=== PATIENT | male | born 1970 | race Caucasian/White ===

== ENCOUNTER 2022-06-06 08:00 | Outpatient (RCR) | payer OTHER, SELFPAY ==
--- NOTE | 2022-06-06 09:05 | BH.SGPN.GN ---
Behaviors/Verbalizations/Mental Status: [] Eye contact good. Motor activity appropriate. Speech within normal limits. Affect congruent- tearful, mood anxious and depressed. Thoughts linear, logical, no signs of hallucinations or delusions. Reviewed client?s symptom tracker, no risk for suicidal ideation, plan, or intent as of 06/06/2022. Client Response/Progress/Benefit: [] Client's first day in IOP tx. He responded well to session, attentive and listening to fellow participants as they processed with the group. Client shared some with group, but became tearful and had a difficult time continuing sharing. 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 Discussed that recently he has been opening up to others about his mental health. Nodding throughout as others shared and appeared to benefit from the supportive structure and encouragement of the group as they shared what they have gotten out of the program. Recommended continued IOP tx to improve emotional regulation skills, increase healthy coping, and prevent decompensation. Narrative Note: []
--- NOTE | 2022-06-07 09:05 | BH.SGPN.GN ---
Behaviors/Verbalizations/Mental Status: []Pt alert and oriented, neatly dressed and groomed. Eye contact good. Motor activity appropriate. Speech within normal limits. Affect congruent, mood anxious. Thoughts linear, logical, no signs of hallucinations or delusions. Reviewed pt?s symptom tracker, no risk for suicidal ideation, plan, or intent as of 06/07/22 Client Response/Progress/Benefit: []Pt responded well to session, quiet, but attentive. Pt's second day of IOP tx and pt reports feeling guarded this morning. Pt shared he has been struggling with PTSD symptoms and he constantly feels on edge and on guard. Pt stated his win today is that he did some work last night with his family. Pt also returned to IOP tx which is positive. Pt will continue IOP tx to prevent decompensation of PTSD symptoms, increase emotional regulation skills, and improve daily functioning. Narrative Note: []
--- NOTE | 2022-06-07 10:12 | BH.SGPN.GN ---
Behaviors/Verbalizations/Mental Status: []Client alert and oriented, casually dressed and groomed. Eye contact good. Motor activity appropriate. Speech within normal limits. Affect congruent, mood anxious and dysthymic. Thoughts linear, logical, no signs of hallucinations or delusions. Client Response/Progress/Benefit: []Client receptive of session, actively engaged throughout AEB taking notes and provided input and examples to discussion. Appeared to connect with group topic of cognitive distortions and the impact of thought patterns on mental health, coping behaviors, and relationships. Reflected that he personally tends to struggle with distortions of predicting the future and overgeneralization. 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 Client appeared to benefit from gaining insight on distorted thinking patterns and how this impacts overall mental health. Progress noted in client report of improved insight and ability to combat distortions with alternative positive thoughts. Will continue IOP tx to reduce anxiety and depression, continue to promote mood stability, and increase overall functioning. Narrative Note: []
--- NOTE | 2022-06-07 11:15 | BH.SGPN.GN ---
Behaviors/Verbalizations/Mental Status: []Eye contact is fair to good. Motor activity is appropriate. Appearance is casual. Speech is WNL. Mood is euthymic. Affect is congruent. Thoughts are linear and logical. No evidence of psychosis. Client Response/Progress/Benefit: []Pt engaged participant AEB providing input during small group discussion and engaging in activity. Activity involved working with peers to answer questions related to psychoeducation on cognitive distortions and practicing reframing distorted thoughts. Pt collaborated with the group to determine the answers. Identified cognitive distortion struggles with the most as shoulds/musts and disqualifying the positive distortions. Benefited from rehearsing ways to challenge/reframe cognitive distortions and by gaining increased insight into examples/definitions of 10 most common cognitive distortions. Will continue in IOP to increase healthy coping skills, improve daily functioning, and prevent decompensation.
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
--- NOTE | 2022-06-08 10:10 | BH.SGPN.GN ---
Behaviors/Verbalizations/Mental Status: []Pt alert and oriented, neatly dressed and groomed. Eye contact good. Motor activity appropriate. Speech within normal limits. Affect constricted, mood anxious. Thoughts linear, logical, no signs of hallucinations or delusions. Client Response/Progress/Benefit: []Pt was an active participant in group discussion and activity. Attentive during psychoeducation. Along with peers was able to identify barriers to taking action. Identified several symptoms and stressors that she feels are holding him back from progress such as fear of letting people down, daily panic attacks, and expectations. 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 Benefited from increased self-awareness of obstacles. Will continue IOP tx to prevent decompensation, improve daily functioning, and gain healthy coping skills. Narrative Note: []
--- NOTE | 2022-06-08 11:10 | BH.SGPN.GN ---
Behaviors/Verbalizations/Mental Status: []Client alert and oriented, casually dressed and groomed. Eye contact good. Motor activity appropriate. Speech within normal limits. Affect congruent, mood anxious and euthymic. Thoughts linear, logical, no signs of hallucinations or delusions. Client Response/Progress/Benefit: []Client responded well to session, taking notes and participating in worksheet discussion. Client connected with the zones of action/change and that making sustainable change comes from stepping out of one?s comfort zone into the learning zone. Client set a goal to gain control over feeling trapped. Client reported plans to challenge himself to get out of the house with either family or his dog once daily. Client identified using trusted supports, therapy, and his amanda as supports needed to help accomplish this goal. Appeared to benefit from identifying a small goal to benefit mental health. Will continue IOP tx to increase healthy coping, promote mood stability, and prevent decompensation. Narrative Note: []
[2022-06-08 11:52] VITALS: BP 125/85; PULSE 61
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
--- NOTE | 2022-06-08 15:15 | BH.MTP_ITS ---
Master Treatment Plan - Patient Information Program Physician:: Devi Ortega Primary Therapist:: Hemal Robles - Psychiatric Diagnoses Psychiatric Diagnoses:: 1. Major depressive disorder, recurrent, severe without psychosis. 2. PTSD. 3. Panic disorder Diagnosis Code(s):: f33.2 - Estimated LOS Estimated LOS (in weeks):: 6 Problem/Goal #1 - Problem/Goal #1 Stated Goal:: Client will reduce depressive symptoms, worthlessness, lack of concentration, and negative automatic thoughts AEB self-report and decreased scores on the depression and suicidal thought domains of the DSM5 scales. Description of Barriers: limited coping skills, isolative behaviors, toxic work environment, limited benefit from previous counseling and medications, stigma Functional Impact: currently on GADIEL from work due to mental health struggles, isolative behaviors, avoidance, decreased interaction with family, decreased social activities. Goal Relevant Strengths/Supports: Strong urge to help others, work ethic. Family is significant support for him - Objectives Objective #1 Stated Objective: Client will learn and utilize 2-3 healthy coping strategies to manage depressive symptoms as shown by reduced DSM-5 cross-cutting symptom measure score. Interventions: Through individual and group counseling will assist client in recognizing triggers for increased self-deprecating and depressive thought patterns. Therapist will help client explore connection between thoughts, feelings, and actions and help client reframe depressive thought patterns. Discharge Criteria: Able to identify and consistently utilize 2-3 coping strategies to manage depressive symptoms, negative thoughts, feelings of failure, etc. Target Date: 07/22/22 Review Date: 06/29/22 Problem/Goal #2 - Problem/Goal #2 Stated Goal:: Stabilize anxiety level while increasing ability to function on a daily basis AEB self-report and decrease in anxiety domain on DSM5 scales. Description of Barriers: limited coping skills, isolative behaviors, toxic work environment, limited benefit from previous counseling and medications, stigma Functional Impact: currently on GADIEL from work due to anxiety, isolative behaviors, avoidance, decreased interaction with family, decreased social activities. Goal Relevant Strengths/Supports: Strong urge to help others, work ethic. Family is significant support for him - Objectives Objective #1 Stated Objective: Client will identify 2-3 cognitive distortions that lead to rumination and learn 2-3 ways to manage these thoughts to better manage anxiety as shown by reduced DSM-5 scores for anxiety. Interventions: Through individual and group counseling will provide education on the most common cognitive distortions and teach client the connection between thoughts, emotions, and feelings. Therapist will assist client in identifying, challenging, and replacing dysfunctional thoughts with positive, more realistic thoughts. Discharge Criteria: Able to identify 2-3 commonly used cognitive distortions and 2-3 skills to reframe/ challenge or alter automatic thoughts associated with cognitive distortions. Target Date: 07/22/22 Review Date: 06/29/22 Objective #2 Stated Objective: Implement calming and coping strategies to reduce overall anxiety and to cope with the experience of panic. Interventions: Through individual and group counseling will provided education on panic attacks as well as calming skills to manage anxiety in the moment. Discharge Criteria: Pt will be able to identify 5 calming skills for use on anxi ety/panic in the moment to reduce distress. Target Date: 07/22/22 Review Date: 06/29/22
--- NOTE | 2022-06-08 15:15 | BH.MDN ---
Multi-Disciplinary Note - Note 60-min Individual Time Started:: 12:10 Date: 06/08/22 Purpose of session/treatment goals addressed:: Met with patient to review progress and current symptoms since starting IOP on 06/06/22. Used the session to begin to develop treatment plan and complete psychosocial assessment. Eye Contact:: Intense Motor Activity:: Restless Appearance:: Neat Speech:: Appropriate Mood:: Anxious Affect:: Congruent Thoughts:: Linear, Logical, No evidence of hallucinations/delusions noted Staff Interventions:: thought challenging, CBT techniques, mindfulness skills, rapport building, treatment planning Client Response:: Pt identified primary goal of IOP is to reduce panic attacks. He estimates that he has 10 panic attacks daily. Symptoms of panic attacks are SOB, chest tightness, numbness, disorientation, feeling trapped, and dizziness. Has presented to the ER with these symptoms recently and according to pt no indication of any heart issues or medical cause. He reports that these panic attacks can last minutes or hours. They appear to be primarily triggered by his negative automatic what if thoughts involving his job, finances, his mental health, housing issues, his future, and his overall functioning. Ruminations occur often (when he wakes up , is driving, in the shower, etc.) and he has limited skills to challenge, reframe, or even accept anxious thoughts. I'm incapacitated. Anxiety and panic attacks have been slowly worsening for the past two years however have been present for several years. Another goal that he has is related to making a decision regarding his current job. He does not wish to return and finds the environment toxic and being significant contributor to his worsening mental health. I want to leave but I feel trapped b/c its all I've ever done. Final goals are to learn calming skills for his anxiety and increase education on trauma. Pt is often hypervigilant due in large part to his training and current job. 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 Risks/Concerns:: no risks or concerns noted. Progress Toward Goals/Plan:: Consistent and engaged in IOP. Pt was receptive to the session. Introduced him to 5 senses mindfulness activity which he found was helpful to bring him into the present. Provided education on connection between thoughts, emotions, and behaviors. Provided education on cognitive distortions. He does present with significant worry ruminations about a myriad of issues with limited coping skills and insight on strategies to reframe or challenge thoughts. He was given task to identify his top 3 cognitive distortion and then begin a thought record. He is linked with an outpatient psychologist whom he has seen a total of 3 sessions and according to patient the mainly talked about breathing exercises and whether or not he should seek disability. Will continue in IOP to prevent decompensation, improve functioning, and increase healthy coping. Time Stopped:: 13:00
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
--- NOTE | 2022-06-13 09:00 | BH.SGPN.GN ---
Behaviors/Verbalizations/Mental Status: []Eye contact is good. Motor activity is appropriate. Appearance is casual. Speech is Appropriate. Mood is anxious and off . Affect is constricted. Thoughts are linear and logical. No evidence of psychosis. Reviewed daily check in sheet and denies any active SI. Client Response/Progress/Benefit: []pt responded well to session, attentive and engaged. Pt reports feeling dizzy and kind of off this morning as pt is worried about what choice he should make with his career. 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 Pt shared belief these worries were exacerbated by pt and his spending time with a ad copy writer friend over the weekend. Pt stated he was able to talk to this person and vent, but pt still feels anxious. Pt receptive to emotional support from peers. Pt reflected on his use of opposite action and reaching out to supports as mental health wins. Pt will continue IOP tx to prevent decompensation, improve ability to manage anxiety and panic, and improve daily functioning. Narrative Note: []
--- NOTE | 2022-06-13 10:10 | BH.SGPN.GN ---
Behaviors/Verbalizations/Mental Status: []Pt alert and oriented, casually dressed and groomed. Eye contact good. Motor activity appropriate. Speech within normal limits. Affect congruent, mood anxious and euthymic. Thoughts linear, logical, no signs of hallucinations or delusions. Client Response/Progress/Benefit: []Pt receptive of group, participated in discussion and taking notes throughout. Group worked together to identify benefits of healthy relationships which included improves mental health, improved emotion regulation, increased sense of security, and a different perspective. Group identified factors that lead to unhealthy relationships which included trauma, lack of communication, unmanaged emotions, and lack of trust. Pt shared connecting with a desire to ?people please? as personal challenges to healthy relationships. Did well to participate, provide input and ideas, manage frustrations, as well as actively listen to other?s during the activity. Benefited from increased insight and awareness of benefits of healthy relationships and factors that contribute to unhealthy relationships. Pt to continue IOP tx to further improve healthy coping skill repertoire and self-advocacy, promote mood stability, and prevent decompensation. ? Narrative Note: []
--- NOTE | 2022-06-13 11:10 | BH.SGPN.GN ---
Behaviors/Verbalizations/Mental Status: [] Client alert and oriented, casually dressed and groomed. Eye contact good. Motor activity appropriate. Speech within normal limits. Affect constricted, mood dysthymic. Thoughts linear, logical, no signs of hallucinations or delusions. Client Response/Progress/Benefit: [] Client responded well to session, engaged and taking notes. Worked with group to identify characteristics of healthy and unhealthy relationships. Attentive during psychoeducation about characteristics of healthy, unhealthy, and abusive relationships. Client stated within relationships he does well with communication at times. Client reported an area she would like to improve in is communication and active listening. Client stated there are times where he gets easily distracted and can't remember what the other person said to him. Appeared to benefit from identifying area wants to work on to build healthier relationships. Client to continue IOP to increase healthy coping skills, challenge distortions, and prevent decompensation.
--- NOTE | 2022-06-15 10:00 | BH.MDN ---
Multi-Disciplinary Note - Note 45-min Individual Time Started:: 09:05 Date: 06/15/22 Purpose of session/treatment goals addressed:: To address current stressors and help pt utilize decisional-balance strategies. Another goal was to review calming skills with pt. Eye Contact:: Good Motor Activity:: Appropriate Appearance:: Casual Speech:: Appropriate Mood:: Anxious Affect:: Constricted Thoughts:: Linear, Logical, No evidence of hallucinations/delusions noted Staff Interventions:: motivational interviewing, psychoeducation on: - panic attacks, CBT techniques, mindfulness skills, strengths perspective, other - decisional balance exercise Client Response:: Pt responded well to session, open to meeting with therapist while his normal IOP therapist is out of the office. 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 Pt then looked at the pros and cons of choosing a new career path and pt could identify more positives and less problematic cons. 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 Pt shared that even with these cons, the potential benefits are worth it to find a new career. Pt is already applying for jobs, but he wants to get help updating his resume. Pt also has an appointment with the [place] in [place] and he is hopeful this will help pt in his job search also. Risks/Concerns:: Pt denies any suicidal ideations, plan, or intent as of 06/15/22. Progress Toward Goals/Plan:: Consistent and engaged in IOP. Pt was receptive to the session. Introduced him to using a decisional balance exercise to help weigh the pros and cons of his career. Also reviewed calming skills previously discussed last session and gave pt a handout on panic attacks. He does present with significant worry ruminations about a myriad of issues with limited coping skills and insight on strategies to reframe or challenge thoughts. Will continue in IOP to prevent decompensation, improve functioning, and increase healthy coping. Time Stopped:: 09:45
--- NOTE | 2022-06-15 10:10 | BH.SGPN.GN ---
Behaviors/Verbalizations/Mental Status: [] Client alert and oriented, casually dressed and groomed. Eye contact good. Motor activity appropriate. Speech within normal limits. Affect congruent, mood euthymic. Thoughts linear, logical, no signs of hallucinations or delusions. Client Response/Progress/Benefit: [] Client responded well to session AEB taking notes throughout and listening attentively to others. Client was attentive throughout group activity discussing famous individuals and how they overcame failure to be successful. Client helped group identify how fear of failure can impact mental health and relationships. Client discussed that personally for him fear of failure can prevent you from trying different things. Group together identified how fear of failure leads to over-obsessing, not trying, and lack of confidence. Client participated in experiential activity, working with group members to problem solve. Appeared to benefit from increased knowledge of fear of failure. Will continue IOP tx to improve self-confidence, reduce distorted thinking patterns, and improve overall functioning. Narrative Note: []
--- NOTE | 2022-06-15 11:10 | BH.SGPN.GN ---
Behaviors/Verbalizations/Mental Status: [] Client alert and oriented, casually dressed and groomed. Eye contact good. Motor activity appropriate. Speech within normal limits. Affect congruent, mood euthymic. Thoughts linear, logical, no signs of hallucinations or delusions. Client Response/Progress/Benefit: [] Client responded well to session, engaged in the experiential activity and attentive throughout group processing. 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 Client completed fear of failure worksheet and was able to identify thoughts and behaviors that reinforce personal fear of failure including embarrassment, PTSD, and fear of rejection. Client participated in small group discussion regarding strategies to overcome fear of failure. Identified wanting to work on connecting with positive people, setting realistic boundaries, and schedule time for self care. Appeared to benefit from increased knowledge of strategies to combat fear of failure and gaining self-awareness. Client will continue IOP tx to increase self care, prevent decompensation, and increase overall functioning. Narrative Note: []
--- NOTE | 2022-06-20 09:05 | BH.SGPN.GN ---
Behaviors/Verbalizations/Mental Status: [] Eye contact is good. Motor activity is appropriate. Appearance is casual. Speech is Appropriate. Mood is depressed. Affect is flat. Thoughts are linear and logical. No evidence of psychosis. Reviewed daily check in sheet and pt reports 1/5 for suicidal thoughts and 0/5 for intent. Therapist to meet with pt this AM. Client Response/Progress/Benefit: [] Pt participated when prompted. Distracted. Daily symptom tracker notes 55 for anxiety and depression. Emotion for today is high anxiety. Shared a significant trigger that he learned of on Monday which led to mental health decompensation. The triggered involved a disciplinary hearing which is scheduled for this week at work. 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 Pt reports that overall the event was beneficial however he was exposed to very intense discussions on trauma which he admits was a lot. Some talks and presentation appeared to very intense and triggering themselves as according to patient one of his friends left because it was very intense. He reports that he made connections with others and felt the environment was very specific to his struggles which was helpful. Despite the event his anxiety was very high and he reports that his panic attacks has increased. He shared with the group some of his negative thoughts and struggles at work. Benefited from group support and encouragement. Will continue in IOP to prevent decompensation, decrease anxiety, and increase functioning to return to work. Narrative Note: []
--- NOTE | 2022-06-20 10:20 | BH.SGPN.GN ---
Behaviors/Verbalizations/Mental Status: []Pt alert and oriented, casually dressed and groomed. Eye contact fair. Motor activity appropriate. Speech within normal limits. Affect flat, mood depressed. Thoughts linear, logical, no signs of hallucinations or delusions. Client Response/Progress/Benefit: []Pt was more passive participant then usual AEB limited contributions to group. Did appear to listen to others comments. Connected with the topic of pitfalls and listened to group discussion on barriers that prevent from choosing a healthier path to mental wellness. Group worked together to identify examples of personal pitfalls and pt identified theirs as lack of communication, isolation, and lack of awareness.? Pt benefited from group as pt learned to better identify potential barriers to improving mental health symptoms. Pt will continue IOP tx to improve emotion regulation, increase use of healthy coping skills, and prevent decompensation.
--- NOTE | 2022-06-20 11:20 | BH.SGPN.GN ---
Behaviors/Verbalizations/Mental Status: []Pt alert and oriented, neatly dressed and groomed. Eye contact fair. Motor activity appropriate. Speech within normal limits. Affect flat, mood anxious. Thoughts linear, logical, no signs of hallucinations or delusions. Client Response/Progress/Benefit: []Pt receptive of session, engaged throughout AEB actively listening and contributing to discussion, as well as taking notes.? Pt participated in the experiential activity and did well to communicate ideas with peers and manage emotions. Pt and group processed how the emotions and perspective of the group after the break positively impacted pt. Group worked together to identify different coping skills to help manage pitfalls. Pt identified pitfalls they struggle with and shared wanting to work on pitfall of shutting down and sleeping by going for walks. ?Benefited from identifying personal pitfalls and strategies to overcome these pitfalls. Will continue IOP tx to prevent decompensation, improve emotional regulation skills to manage anxiety, and reduce negative thinking patterns. Narrative Note: []
--- NOTE | 2022-06-20 13:58 | BH.MDN ---
Multi-Disciplinary Note - Note 60-min Individual Time Started:: 12:15 Date: 06/20/22 Purpose of session/treatment goals addressed:: Reviewed current symptoms and progress in IOP. Pt reports decompensation over the weekend with increased panic attacks back to 10 a day. Eye Contact:: Fair Motor Activity:: Appropriate Appearance:: Neat Speech:: Appropriate Mood:: Anxious Affect:: Congruent Thoughts:: Linear, Logical, No evidence of hallucinations/delusions noted Staff Interventions:: thought challenging, psychoeducation on: - acceptance, goal setting - goals to allow himself 15 minutes per day to give himself permission not to worry. 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 This led to significant anxiety, panic, and depressive thoughts. Over the weekend I thought I'd rather be anyone else but me. He reported survival ambivalence stating if someone shot me I wouldn't care. Denies active SI, plan, or intent. No hx of attempts. This trigger has also led to an increased in panic attacks and ruminations since Monday. 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 Insight that not isolating and being vulnerable was beneficial, however he admits that he struggles to be vulnerable and communicate with his . Discussion on ways to improve communicate with . Pt feels like a failure due to letting his mental health get so bad before seeking treatment and not being able to manage his anxiety. Very focused on this and believes that he should be able to fix it. Open to discussion on how acceptance can help alleviate intensity of anxiety. Risks/Concerns:: Denies active suicidal ideations, plan, or intent. No hx of attempts. Survival ambivalence however no intent or ideations. Protective factors are family and amanda. Future-oriented. He has meetings this week with a representive from [place] to help with job search. Progress Toward Goals/Plan:: Regression since last week due to trigger (call from boss at work regarding disciplinary hearing). Understands that his working environment is detrimental to he mental and physical health, however feels trapped b/c its all I know. Has no desire to return however due to finances he feels obligated unless he find another job soon. 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 Receptive to discussion on acceptance and giving himself permission to not be anxiety for 15 minutes tomorrow. Insight that completing opposite action to talk and not communicate is beneficial. Did not have time to review cognitive distortions. Plan to meet again this week as pt's anxiety is very high due to disciplinary hearing. Will continue in IOP to prevent decompensation, decrease anxiety, and improve functioning. Time Stopped:: 01:05
--- NOTE | 2022-06-24 09:00 | BH.SGPN.GN ---
Behaviors/Verbalizations/Mental Status: [] Eye contact is poor. Motor activity is appropriate. Appearance is casual. Speech is Appropriate. Mood is anxious. Affect is congruent. Thoughts are linear and logical. No evidence of psychosis. Reviewed daily check in sheet and pt reports 1/5 for sucidal thoughts and 0/5 for risk. Client Response/Progress/Benefit: [] Nestor- Pt participated when prompted. Distracted. States ? this week was a rough week?. He did not elaborate much during his check in except to state that he mental health was decompensating due to several stressful events this week. When asked if he was using skills he replied, ? 5 senses?. The group provided support and encouragement which was beneficial. Will continue in IOP to prevent decompensation, increase healthy coping, and to improve functioning to return to work. Narrative Note: []
--- NOTE | 2022-06-24 10:05 | BH.SGPN.GN ---
Behaviors/Verbalizations/Mental Status: []Pt alert and oriented, neatly dressed and groomed. Eye contact fair. Motor activity appropriate. Speech within normal limits. Affect flat, mood anxious and depressed. Thoughts linear, logical, no signs of hallucinations or delusions. Client Response/Progress/Benefit: []Pt participated in group discussions at times. Active participant in experiential activity. Attentive during psychoeducation. Attentive as peers shared types of social supports which included; family, friends, PCP, mental health providers, support groups, pets, ourselves, community classes, etc. Attentive as group identified mental health benefits of social support but pt and peers also shared sometimes it seems like they cannot access support. Contributed as peers worked together to identify obstacles to utilizing support. Pt identified personal barriers as pride, lack of awareness of supports, and isolation. Benefited from increased awareness of mental health benefits of social support and obstacles that prevent one from utilizing support. Will continue IOP tx to reduce anxiety and PTSD symptoms, improve daily functioning, and reduce negative self-talk. Narrative Note: []
--- NOTE | 2022-06-24 13:02 | BH.MDN ---
Multi-Disciplinary Note - Note 30-min Individual Time Started:: 11:30 Date: 06/24/22 Purpose of session/treatment goals addressed:: Reviewed progress and current symptoms. Pt attended a stressful event yesterday and reported high anxiety this AM. Eye Contact:: Good Motor Activity:: Appropriate Appearance:: Neat Speech:: Appropriate Mood:: Anxious, Depressed Affect:: Congruent Thoughts:: Linear, Logical, No evidence of hallucinations/delusions noted Staff Interventions:: CBT techniques - Reframed negative automatic thoughts., strengths perspective Client Response:: Pt shared that this week has been extremely challenging noting decompensation to anxiety levels prior to admission to [facility]. He attended a disciplinary hearing at work yesterday, the result of which could lead to a demotion which is embarrassing. Ruminations about mistakes causing increased depression and anxiety. Increased isolation. Processed the event with patient. Able to reframe the event noting that he has made millions of great [employer] decisions in his work over the last 10 years and has had one decision that resulted in a hearing. Utilized the session to education patient on his anxiety maintenance cycle and how this keeps him from progress. He was receptive and we discussed strategies to break the cycle. Pt chose to focus on decreased isolation. We identified a plan this weekend and we worked to reframe his thoughts and perspectives on a trip he is going on with his family. Identified ways to use the trip to create positive memories, re-connect with family, and get to know his in-laws. Focused on how this could not only help out others but also himself. Identified that he does have control over his thoughts and action which means he can break the anxiety cycle. Risks/Concerns:: Denies active suicidal ideations, plan, or intent. No hx of attempts. He reports passive thoughts related to not existing I'd rather be anyone else and survival ambivalence. Protective factors. Future oriented. Progress Toward Goals/Plan:: Pt had a very challenging week which resulted in decompensation. Increased anxiety, depression, and panic attacks. Increased isolation. Struggling to utilize coping skills on consistent basis. Relying on breathing and mindfulness skills which are helpful in the moment. Responds well when therapist reframes and challenges thoughts for him, however would benefit from learning this skills independently. Insight and awareness of anxiety maintenance cycle and identified strategies to utilize this weekend to challenge thoughts, increase socialization, and to decrease rumination. Will continue in IOP to maintain safety, prevent decompensation, and to improve functioning. Time Stopped:: 12:05
--- NOTE | 2022-07-06 14:25 | BH.DR.ITP ---
Initial Treatment Plan Patient Information Visit Information: ADMISSION DATE: EXPECTED LOS: 4-6 weeks Problems/Symptoms Problem #1:: Depression Symptom:: Sadness, hopelessness, biological disruption of appetite , passive thoughts of Problem #2:: Anxiety Symptom:: Worry, rumination, panic attacks, avoidance
== END 2022-06-26 23:59 ==
LOC: BHIOP 08:00
PROVIDERS: Referring Provider Psychiatry & Neurology Psychiatry; Visit Provider Psychiatry & Neurology Psychiatry
DX: F33.2 Major depressive disorder, recurrent severe without psychotic features (principal); F43.10 Post-traumatic stress disorder, unspecified; F41.0 Panic disorder [episodic paroxysmal anxiety]
CPT/HCPCS: S9480; 90832; 90834; 90837; 90853

== ENCOUNTER 2022-06-27 08:23 | Outpatient (RCR) | payer OTHER, SELFPAY ==
[2022-06-27 00:49] VITALS: BP 125/85; PULSE 61
--- NOTE | 2022-06-29 10:10 | BH.SGPN.GN ---
Behaviors/Verbalizations/Mental Status: []Eye contact is good. Motor activity is appropriate. Appearance is casual. Speech is Appropriate. Mood is anxious and depressed. Affect is congruent. Thoughts are linear and logical. No evidence of psychosis. Client Response/Progress/Benefit: []Pt was an active participant in group discussion and experiential activity, though remaining mostly passive throughout. Attentive during psychoeducation on resilience. Participated in interactive discussion with peers on the definition of resilience and where it comes from. Group identified that resiliency can be impacted by; past experiences, learned behaviors, and current mental health state. Pt described personal example of learning to rely on his resilience [place]. Group also worked together to identify the benefits of being resilient and how it is related to mental health. Able to relate experiential activity of group juggle to topics of resilience. Worked well with peers in small group in which they identified factors that contribute to resilience. Benefited from increased awareness of resilience and the factors that contribute to building resilience. 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 Narrative Note: []
--- NOTE | 2022-06-29 10:15 | BH.MDN_ITS ---
Multi-Disciplinary Note - Note 45-min Individual Time Started:: 09:15 Date: 06/29/22 Purpose of session/treatment goals addressed:: Reviewed progress and current symptoms. Addressed treatment plan goals 1 and 2. Eye Contact:: Good Motor Activity:: Appropriate Appearance:: Casual Speech:: Appropriate Mood:: Anxious, Depressed Affect:: Congruent Thoughts:: Linear, Logical, No evidence of hallucinations/delusions noted Staff Interventions:: thought challenging, psychoeducation on: - cognitive distortions, CBT techniques, mindfulness skills Client Response:: Pt reports that his weekend was stressful. He implemented opposite-action, reframing, and affirmations on Monday and reported benefit and decreased ruminations. Increased communication with which led to connectiveness and mindfulness. I was able to be in the moment. He reported anxiety, panic, and ruminations on Monday and most the day Monday. We walked through his thoughts, emotions, and behaviors. Thoughts that are triggering his panic/anxiety and leading to isolation are related to his job, his recent struggles at work, his anxiety, and his future. Insight that he is catastrophizing and viewing events/himself in all or nothing terms. Therapist w orked with patient on reframing, challenging, and identifying more realistic thoughts. Helped pt identify cognitive distortions and how these are leading to unrealistic and harmful thoughts and thinking patterns. Risks/Concerns:: No risks or concerns noted. Progress Toward Goals/Plan:: Progress noted since last week. Pt was able to utilize opposite-action, thought challenging, and mindfulness skills over the weekend. On one occasion he recognized his anxiety was escalation, communicated with his support, walked out of anxiety-provoking situation, utilized skills to calm, and then returned. Originally view this as a set-back as he had a panic attacks however therapist able to point out that he responded well. His absolute thinking good vs bad, succeed or fail, etc often impacts his views on progress, functioning, and failures. Looking for resolution on every situation and when resolution is not possible (i.e. finding a job right away) he feels he has failed or compelled to only focus on task till completion (ruminating on future constantly). Working on identifying cognitive distortions, negative thoughts and ways to reframe and challenge to make thoughts more realistic. Will continue in IOP to prevent decompensation, stabilize mood, and improve functioning. Reviewed outcomes measurement today which shows an overall 10% decrease in symptoms since admission, however scores on the anxiety and depression domain continue to be at max. Time Stopped:: 10:00
--- NOTE | 2022-06-29 11:10 | BH.SGPN.GN ---
Behaviors/Verbalizations/Mental Status: []Pt alert and oriented, neatly dressed and groomed. Eye contact fair. Motor activity appropriate. Speech within normal limits. Affect flat, mood anxious. Thoughts linear, logical, no signs of hallucinations or delusions. Client Response/Progress/Benefit: []Pt responded well to session AEB completing the resilience worksheet provided. Pt participated in the discussion and worked cooperatively with group to identify strategies to enhance each of the components discussed. Pt reports belief they already use resilience trait of??taking decisive action? as pt has always been goal-oriented and good at making decisions. Pt stated they would like to continue to develop resilience trait of ?avoiding seeing crises as insurmountable problems.? Pt seemed to benefit from discussing strategies for improving personal resilience and identifying resilience traits pt already possesses. Pt?s progress is limited and may be impacted by pt?s multiple cancellations. Will continue IOP tx to reduce avoidance, increase distress tolerance skills, and improve daily functioning. Narrative Note: []
--- NOTE | 2022-06-29 12:03 | PCM.BH.PN ---
Progress Note Progress Note: And history of Present Illness/Interim History: The patient is a 51-year-old male with a history of PTSD, panic disorder and depression who is seen in follow-up at the [facility] IOP program. I last saw the patient 3 weeks ago and at that time he was placed on Remeron at bedtime and Ativan as needed for panic attacks. According to the staff the patient has had somewhat inconsistent attendance in his having a hard time learning and implementing the skills in the program. He isolates himself somewhat and admits that he is spending a lot of time ruminating on his possible future job. He recently had a disciplinary hearing at his [employer] place of work and he received a demotion. This has increased the patient's stress and although he really wants to leave the [employer] work because he feels it makes his trauma and panic worse he does need to support his family so he is looking for another job. His mood is about the same and he still is having anxiety and panic attacks. Panic attacks sometimes only 6 a day now but up to 10 on some days. He states that his mood remains depressed and he has some hopelessness and worthlessness. He is no longer losing weight and the Remeron has helped his appetite to the point where he is now maintaining his weight. He is still having flashbacks avoidance and nightmares from his past trauma and triggers about his past trauma. He still has occasional passive thoughts of but denies suicidal ideation, plan for suicide, homicidal ideation, hallucinations or delusions. He feels his family is protective against suicide. He went to a over the weekend which increases stress but he was able to handle it. Current Psychiatric Medications: [] Remeron 15 mg p.o. nightly (x3 weeks); Ativan 1 mg (patient is taking this about twice a week); Celexa 40 mg p.o. daily (dose increased 7 weeks ago). Mental Status Examination: [] The patient is a 51-year-old fit male who appears normal for stated age and is ambulatory with a normal gait. He is casually dressed and groomed with good hygiene and has no psychomotor agitation or retardation. He is pleasant during the interview. Eye contact is good and speech is regular rate and rhythm and fluent with no pressure. Mood is pressed, affect is constricted mildly. Thought processes goal-directed and organized. 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 There is no evidence of passive thoughts of , suicidal ideation, homicidal ideation, plan for suicide, hallucinations or delusions. Reality testing is intact. Intelligence is average or above. Judgment is intact. Impulsivity is moderate to low. Insight is fair but limited. Diagnoses: [] 1. Major depressive disorder, recurrent, severe without psychosis 2. PTSD 3. Panic disorder 4. Work and primary support issues Plan: [] The patient will continue the IOP program at [facility] as the structure, support, education and group therapy will hopefully prevent worsening of the patient's symptoms which might require hospitalization. He felt safe during the interview and if it anytime he does not feel safe he agrees to let us know or go to the emergency room. The risk, options, and possible complications and side effects of the medications were again discussed with the patient and he understands and accepts these. Patient agrees to increase his Remeron to 30 not milligrams p.o. nightly and prescription is sent in for this. No other medication changes were made. He will continue to follow-up with his outpatient providers and I will see the patient in follow-up in 2 weeks.
--- NOTE | 2022-06-29 15:13 | BH.TPR ---
Treatment Plan Review Date of Admission:: 06/06/22 Date of Treatment Plan Review:: 06/29/22 Admitting Diagnoses:: 1. Major depressive disorder, recurrent, severe without psychosis. 2. PTSD. 3. Panic disorder Current Diagnoses:: 1. Major depressive disorder, recurrent, severe without psychosis. 2. PTSD. 3. Panic disorder Patient's Response to Treatment:: Limited progress in IOP. Pt's attendance has been inconsistent (Averages 2 days per week instead of 3) and he experienced a significant psychosocial stressor a week into IOP (disciplinary hearing at work). Attentive at times during group with occasional engagement. Difficulty taking information and skills learned and implementing them when anxious, depressed, or isolating. Primary coping skills are external (distraction, 5 senses, breathing) and reactive. His absolute thinking good vs bad, succeed or fail, etc often impacts his views on progress, functioning, and failures. Looking for resolution on every situation and when resolution is not possible (i.e. finding a job right away) he feels he has failed or compelled to only focus on task till completion (ruminating on future constantly). Working on internal strategies for depression/anxiety such as identifying cognitive distortions, negative thoughts and ways to reframe and challenge to make thoughts more realistic. Status of Current Problems and Symptoms: Overall pt had a 10% decrease in symptoms since admission, however his scores on the depression and anxiety domains did not change since admission. Scores on the suicide domain also increased a point. Outcome measures show that his memory and sleep improved. Also notes decreased dissociative states. Discussed at treatment team and while not ideal pt was able to manage a significant stressor last week (disciplinary hearing) and did not significantly decompensate. Pt also reports improved appetite and weight gain. Continues to report 6-10 panic attacks daily, isolation, ruminations, and passive thoughts of . Symptoms are still impacting his daily functioning. Struggles to utilize skills independently and consistently, however it remains early in treatment. Problem #1 Problem Name:: Depression Status of Goals:: No changes in outcomes measurements since admission and increased in passive thoughts of . obj1- Not complete. Increase psychoeducation on skills and can identify health coping skills, however struggles to utilize healthy coping when needed. When stressed or overwhelmed continues to isolation, avoid, overanalyze, and persecute himself for having depressive symptoms. Team Recommendations:: Continue with current treatment plan. Will reach out to pt's psychologist to discuss case further and begin to set-up aftercare. Problem #2 Problem Name:: Anxiety Status of Goals:: No changes on anxiety domain scale since admission. Continues to report daily panic attacks. obj 1- Not complete. Able to identify cognitive distortions however is struggling to consistently reframe or challenge. obj 2- Not complete. Able to identify calming skills such as breathing, 5 senses, distraction, etc. however again struggles to practice and implement to better manage anxiety. More reactive than proactive. Team Recommendations:: Continue with current treatment plan. Will reach out to pt's psychologist to discuss case further and begin to set-up aftercare.
--- NOTE | 2022-06-30 09:00 | BH.COMM ---
Communication Note - Communication with Client Communication Note: cancelled for today
--- NOTE | 2022-07-01 09:05 | BH.SGPN.GN ---
Behaviors/Verbalizations/Mental Status: [] Eye contact is good. Motor activity is appropriate. Appearance is casual. Speech is Appropriate. Mood is anxious. Affect is congruent. Thoughts are linear and logical. No evidence of psychosis. Reviewed daily check in sheet and no reports of suicidal ideations or intent. Client Response/Progress/Benefit: [] Pt participated at times during the group discussions on blame and its role in mental health. Daily symptom tracker notes 3/5 for depression and anxiety. Tracker notes improvement since early this week. Emotion for today is ?better than average?. Mental health win was that he ?got sleep last night?. Reports struggling with sleep for the past few days which has impacted his mental health. Shared increased ruminations are night while he is is trying to fall asleep. The group provided suggestions and feedback to assist with excessive thoughts at time which was beneficial. Will continue in IOP to prevent decompensation, increase healthy coping, decrease panic attacks, and improve functioning to return to work. Narrative Note: []
--- NOTE | 2022-07-01 10:10 | BH.SGPN.GN ---
Behaviors/Verbalizations/Mental Status: [] Client alert and oriented, neatly dressed and groomed. Eye contact good. Motor activity appropriate. Speech within normal limits. Affect congruent, mood euthymic. Thoughts linear, logical, no signs of hallucinations or delusions. Client Response/Progress/Benefit: []Client connected with topic of Anxiety and participated throughout, providing input and taking notes. Attentive during psychoeducation on different anxiety disorders and participated throughout interactive discussion defining anxiety and identifying cognitive and physical symptoms of anxiety along with safety behaviors. Common cognitive symptoms identified by group included: ?thoughts of dread?, ?mind reading, and fortune telling. Group identified common physical symptoms such as nausea, shakiness, and tightness in chest. Client personally identified that they have thought of what's wrong with me when experiencing anxiety. Benefited from increased awareness and insight on anxiety and its impact. Plan is to continue in IOP to maintain stability, increase consistency of healthy coping, and increase overall functioning. Narrative Note: []
--- NOTE | 2022-07-01 11:20 | BH.SGPN.GN ---
Behaviors/Verbalizations/Mental Status: [] Client alert and oriented, neatly dressed and groomed. Eye contact good. Motor activity appropriate. Speech within normal limits. Affect congruent, mood euthymic. Thoughts linear, logical, no signs of hallucinations or delusions. Client Response/Progress/Benefit: [] Client was an active participant in group discussion AEB providing contributions throughout group and listening attentively to others. Attentive during psychoeducation on mindfulness and ways to utilize mindfulness techniques to improve anxiety management. The group together practiced guided meditation and 5 senses technique during session. Engaged and attentive during group practicing of skills and discussing their benefit. Appeared to benefit from practicing in the moment coping skills and increasing repertoire of anxiety management skills. Client selected mindfulness menu of working out, 5 senses, body scan, and deep breathing. Client will continue IOP tx to promote continued use of healthy coping skills, regulation emotions, and increase overall functioning. Narrative Note: []
--- NOTE | 2022-07-06 09:00 | BH.SGPN.GN ---
Behaviors/Verbalizations/Mental Status: []Pt alert and oriented, neatly dressed and groomed. Eye contact good. Motor activity appropriate. Speech within normal limits. Affect incongruent-laughing but talking about panic, mood anxious. Thoughts linear, logical, no signs of hallucinations or delusions. Reviewed pt?s symptom tracker, no risk for suicidal ideation, plan, or intent as of 07/06/22 Client Response/Progress/Benefit: []Pt responded well to session, attentive and receptive to feedback. Pt reports feeling panicked this morning. Pt shared he continues to have racing thoughts that wake him up at night about returning to work. 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 Pt is working on trying to find another job, but it is not going as planned. Pt's mental health win today is that he got to have quality time with his daughter and family over the weekend. Pt appeared to benefit from group feedback on pt's anxiety and advice on skills. Pt will continue IOP tx to promote distress tolerance skills, improve daily functioning, and reduce intensity of anxiety. Narrative Note: []
--- NOTE | 2022-07-06 10:10 | BH.SGPN.GN ---
Behaviors/Verbalizations/Mental Status: [] Eye contact is good. Motor activity is appropriate. Appearance is casual. Speech is Appropriate. Mood is anxious. Affect is congruent. Thoughts are linear and logical. No evidence of psychosis. Client Response/Progress/Benefit: [] Pt was an active participant in group discussions. Attentive during psychoeducation on the 4 communication styles (Passive, Passive-Aggressive, Aggressive, and Assertive) and the obstacles to effective communication. Contributed during interactive discussion on the benefits of communicating effectively which included; having one's needs met, helping others get their needs met, building connection with others, decreases stress and uncertainty, improved relationships, increased trust, and increased understanding of others. Worked well in small group in which pt and peers identified the benefits and disadvantages to the different communication styles. Benefited from increased understanding of communication styles and how these can impact effective communication. Will continue in IOP to prevent decompensation, stabilize mood, increase healthy coping skills, and improve functioning to return to work. Narrative Note: []
--- NOTE | 2022-07-06 11:54 | PCM.BH.PN ---
Progress Note Progress Note: History of Present Illness/Interim History: The patient is a 51-year-old male with a history of PTSD, panic disorder and depression who is seen in follow-up at the [facility] behavioral health IOP program. I last saw the patient 1 week ago and the patient requested to see me today as he feels his sleep is getting worse in the last few weeks and did not improve after increasing his Remeron. Discussed with the patient that the Remeron was increased to help with his depression and anxiety which when it resolves will help with his sleep. The patient feels his sleep is worse and he is only getting about 4 hours a night the last few weeks because as it gets closer to him having to return to work he becomes much more nervous and unable to sleep. 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 Mood remains anxious still with a number of panic attacks a day. Mood is depressed. Weight is stable and he might be gaining a little bit of weight but he states that he is good to start jogging and eating healthily. He denies suicidal ideation, plan for suicide, homicidal ideation, hallucinations or delusions. His family is protective against him committing suicide according to the patient. Current Psychiatric Medications: [] Remeron 30 mg p.o. nightly (increased 1 week ago); Ativan 1 mg (taking this about twice a week); Celexa 40 mg p.o. daily (dose increased 2 months ago);. Mental Status Examination: [] The patient is a 51-year-old male who appears normal for stated age and is ambulatory with a normal gait. He is casually dressed and groomed with good hygiene and has no psychomotor agitation or retardation. He is pleasant and cooperative during the interview. Speech is normal rate and rhythm and fluent with no pressure and eye contact is good. Mood is anxious. Affect is mildly constricted. Thought process is goal-directed and organized. 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 There is no evidence of passive thoughts of , suicidal ideation, homicidal ideation, plan for suicide, hallucinations or delusions. Reality testing is intact. Intelligence is average or above. Judgment is intact. Impulsivity is moderate. Insight is fair but limited. Diagnoses: [] 1. Major depressive disorder, recurrent, severe without psychosis 2. PTSD 3. Panic disorder 4. Work and primary support issues Plan: [] The patient will continue the IOP program at [facility] as the structure, support, education and group therapy will hopefully prevent worsening of the patient's symptoms. He felt safe during the interview and if it anytime he does not feel safe he will let us know or go to the emergency room. The risk, options, possible complications and side effects of the medications were again discussed with the patient and he understands and accepts these. The patient agrees to add Seroquel 50 mg p.o. nightly to help with sleep and anxiety. If one does not help sleep he is allowed to take 2 or 100 mg nightly of the Seroquel. Prescription is sent in for this. He will continue to follow-up with his outpatient providers and I will see the patient in follow-up in 2 weeks.
--- NOTE | 2022-07-07 10:10 | BH.SGPN.GN ---
Behaviors/Verbalizations/Mental Status: [] Eye contact is good. Motor activity is appropriate. Appearance is casual. Speech is Appropriate. Mood is anxious. Affect is congruent. Thoughts are linear and logical. No evidence of psychosis. Client Response/Progress/Benefit: [] Pt was an active participant in group discussions. Attentive during psychoeducation on stages of change. Participated during experiential activity. Interactive group discussion on why change is difficult in which group verbalized that change involves the unknown, is scary, leads to uncertainly, makes one feel vulnerable, leads to fear of failure, and challenges one's comfort zone. Pt states change is exciting. Group discussion on how emotions such as loneliness, confusion, happy, frightened, hopeful, and guilt impact or prevent change. Benefited from increased awareness of stages of changes and how emotions impact change. Will continue in IOP to prevent decompensation, stabilize anxiety, and improve functioning to return to to work. Narrative Note: []
--- NOTE | 2022-07-07 11:10 | BH.SGPN.GN ---
Behaviors/Verbalizations/Mental Status: []Pt alert and oriented, neatly dressed and groomed. Eye contact good. Motor activity appropriate. Speech within normal limits. Affect constricted, mood content. Thoughts linear, logical, no signs of hallucinations or delusions. Client Response/Progress/Benefit: []Pt responded well to session, attentive AEB participating in activity and actively engaging in group discussion. Group processed activity to relate the strategies used to overcome barriers in the activity to managing change in own life. Discussed and set SMART goal in group as it relates to change group members are wanting to make. Pt identified change they want as changing his thought patterns when he becomes anxious. Identified being in the preparation stage. Pt stated to get to the action stage, he needs more self-care and to practice reframing. Appeared to benefit from identifying a small goal to work towards. Pt will continue IOP tx to increase distress tolerance skills, improve self-confidence, and improve mood stability. ? Narrative Note: []
--- NOTE | 2022-07-07 11:58 | BH.MDN ---
Multi-Disciplinary Note - Note 60-min Individual Time Started:: 10:10 Date: 07/07/22 Purpose of session/treatment goals addressed:: Reviewed progress and current symptoms. Addressed treatment plan goals 1 and 2. Eye Contact:: Good Motor Activity:: Appropriate Appearance:: Casual Speech:: Appropriate Mood:: Anxious Affect:: Congruent Thoughts:: Linear, Logical, No evidence of hallucinations/delusions noted Staff Interventions:: thought challenging, CBT techniques Client Response:: Pt shared that he had panic attacks yesterday morning prior to IOP. Trigger to panic was related to returning to work which has consistently been a significant trigger to anxiety, stress, depression, and irritability. IOP yesterday was helpful to help shift perspective, reframe thoughts, and decrease catastrophizing thoughts. Reports that for the remainder of the day he only experienced a small panic attack in the evening related to a family stressor. We looked back at yesterday to identify skills that were beneficial. He utilized opposite-action which increased his motivation and energy as well as decreased isolation, he was also able to develop an affirmation that helped with reframing catastrophizing thoughts. Improved awareness of absolute thinking and its impact. Overall increased awareness which has led to slight improvement in mood yesterday and today. Pt does well processing thoughts and reviewing CBT techniques in session and appears to be utilizing these skills more independently as well. According to pt he is also improving his communication with family. Risks/Concerns:: no risks or concerns noted. Progress Toward Goals/Plan:: Slight improvement noted this week, however he continues to have panic attacks several times daily per his report, however they have decreased in intensity, duration, and severity. He is very anxious and overwhelmed at the aspect of returning to work. He spoke with program psychiatrist yesterday and she recommended extending his leave as it would appear that returning to work at this junction would not be feasible. 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 Feels trapped as this job is not beneficial to his mental health, the thought of returning triggers significant panic, and overall limited pleasure in job, however financially he needs the job to support his family. He continue to work with [employer] job assistance to find other opportunities. Will continue in IOP to prevent decompensation, stabilize mood, and improve functioning. This therapist has reached out to his psychologist on 2 occasions to discuss the case. His psychologist has been following patient and is completing his FMLA through his employer. Time Stopped:: 09:05
--- NOTE | 2022-07-08 09:00 | BH.SGPN.GN ---
Behaviors/Verbalizations/Mental Status: []Pt alert and oriented, casually dressed and groomed. Eye contact poor. Motor activity appropriate. Speech within normal limits. Affect congruent, mood euthymic and anxious. Thoughts linear, logical, no signs of hallucinations or delusions. Reviewed pt?s symptom tracker, no risk for suicidal ideation, plan, or intent. Client Response/Progress/Benefit: []Pt responded well to session, attentive and receptive to feedback. Client shared mental positive as taking time to encourage himself to practice using thought challenging and opposite action. Shared this is newer for him as he has been conditioned to ignore his emotions for much of his life and adult career. Reported additional mental positive as getting a good night?s rest after several nights of poor sleep. 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 Did well to identify thought challenge/reframes to address associated anxiety. Seemed to benefit from support from peers. Pt will continue IOP tx to continue to promote use of healthy coping skills, challenge negative and anxious thinking, and prevent decompensation. Narrative Note: []
--- NOTE | 2022-07-08 10:10 | BH.SGPN.GN ---
Behaviors/Verbalizations/Mental Status: [] Eye contact is good. Motor activity is appropriate. Appearance is casual. Speech is Appropriate. Mood is euthymic. Affect is congruent. Thoughts are linear and logical. No evidence of psychosis. Client Response/Progress/Benefit: []Pt engaged participant AEB listening to others, engaging in activity, and providing feedback at times. Attentive during psychoeducation and provided insight into obstacles in the way of mental wellness. Pt stated in current reality feels like on a boat alone, isolating from others with no motivation. In desired reality wants to allow support to help him and use opposite action to do the things he needs to do. Identified barriers to desired reality include: isolation, focus on stressors, PTSD, and negative self-talk. Benefited from taking look at current mental health state and obstacles for progress. Pt to continue IOP to promote healthy coping skills, improve stressor management, and prevent decompensation. Narrative Note: []
--- NOTE | 2022-07-08 11:15 | BH.SGPN.GN ---
Behaviors/Verbalizations/Mental Status: []Pt alert and oriented, neatly dressed and groomed. Eye contact good. Motor activity appropriate. Speech within normal limits. Affect congruent, mood euthymic. Thoughts linear, logical, no signs of hallucinations or delusions. Client Response/Progress/Benefit: []Pt an active participant, encouraging peers and contributed as group brainstormed ideas on how to cope with internal barriers that keep Pts stuck from moving towards goals. Able to identify barriers to desired reality. Worked with group to identify strategies to help overcome barriers. Identified personal barriers to desired reality. Pt wants to work on overcoming the barrier of focusing on stressors and not solutions by utilizing thought challenging more often. Benefited from group by identifying obstacles and solutions to desired reality.? Pt to continue IOP tx to reduce ruminations, increase distress tolerance skills, and improve mood stability. Narrative Note: []
--- NOTE | 2022-07-11 09:05 | BH.SGPN.GN ---
Behaviors/Verbalizations/Mental Status: []Pt alert and oriented, neatly dressed and groomed. Eye contact good. Motor activity appropriate. Speech within normal limits. Affect constricted, mood anxious. Thoughts linear, logical, no signs of hallucinations or delusions. Reviewed pt?s symptom tracker, no risk for suicidal ideation, plan, or intent as of 07/11/22 Client Response/Progress/Benefit: []Pt responded well to session, attentive and providing support. 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 Pt stated he is feeling a little discouraged because he had been applying for jobs and has not got an interview. Pt did utilize the 5-senses this weekend to manage anxiety and he spent quality time with his family which he enjoyed. Pt appeared to benefit from peer feedback. Pt will continue IOP tx to promote mood stability, reduce ruminations, and improve daily functioning. Narrative Note: []
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
--- NOTE | 2022-07-11 11:15 | BH.SGPN.GN ---
Behaviors/Verbalizations/Mental Status: [] Eye contact is good. Motor activity is appropriate. Appearance is casual. Speech is Appropriate. Mood is euthymic. Affect is congruent. Thoughts are linear and logical. No evidence of psychosis. Client Response/Progress/Benefit: [] Client responded well to session AEB listening attentively to peers, providing some input, as well as taking notes throughout. Group discussed the different types of boundary styles. Reports connecting most with rigid and porous style of boundary setting with indicating it depends on the environment and people he is around. Participated in group discussion brainstorming various strategies for improving healthy boundary setting. Client reports wanting to work on practicing self care more consistently and know and what to share with others to improve overall ability to establish and maintain healthy boundaries. Seemed to benefit from increased awareness of how different boundary styles can impact mental health. Will continue IOP tx to increase overall functioning, increase self-care and anxiety management, and prevent decompensation. Narrative Note: []
--- NOTE | 2022-07-14 09:01 | BH.SGPN.GN ---
Behaviors/Verbalizations/Mental Status: []Pt alert and oriented, casually dressed and groomed. Eye contact good. Motor activity appropriate. Speech within normal limits. Affect congruent, mood anxious. Thoughts linear, logical, no signs of hallucinations or delusions. Reviewed pt?s symptom tracker, no risk for suicidal ideation, plan, or intent. Client Response/Progress/Benefit: []Pt responded well to session, attentive and receptive to feedback. Client reported mental positive as taking his kid out for dinner and going cold and dark miniature golfing. Client stated while out golfing with his kid he used the 5 senses to manage his emotions and stay in the moment. Client stated he is feeling anxious and perplexed that he has not gotten any calls from the numerous jobs he is applied for. Client receptive to feedback from peers and noted it was helpful to hear from others. Seemed to benefit from support from peers. Pt will continue IOP tx to continue use of healthy coping skills, challenge distorted thoughts, and prevent decompensation.
--- NOTE | 2022-07-14 10:10 | BH.SGPN.GN ---
Behaviors/Verbalizations/Mental Status: []Pt alert and oriented, neatly dressed and groomed. Eye contact good. Motor activity appropriate. Speech within normal limits. Affect congruent, mood euthymic. Thoughts linear, logical, no signs of hallucinations or delusions. Client Response/Progress/Benefit: [] Pt responded well to session, attentive during psychoeducation on SMART goals (Specific, Measurable, Achievable, Realistic, and Time-bound) and engaged in group experiential activity. Participated in an interactive discussion with peers in which they worked together to define what a goal is and the benefits of having goals. Group identified benefits as; reduces anxiety, improves motivation, improves relationships, and personal growth. Participated in interactive discussion in which group identified barriers to setting goals and following through with goals. Personal barriers included self-doubt, anticipatory anxiety, and distortions. Benefited from increased awareness of benefits and strategies for goal-setting. Will continue in IOP to improve mood stability, improve anxiety management, and improve daily functioning. Narrative Note: []
--- NOTE | 2022-07-14 11:15 | BH.SGPN.GN ---
Behaviors/Verbalizations/Mental Status: []Client alert and oriented, casually dressed, appropriately groomed. Eye contact good. Motor activity appropriate. Speech within normal limits. Affect congruent, mood euthymic and anxious. Thoughts linear, logical, no signs of hallucinations or delusions. Client Response/Progress/Benefit: []Client was engaged during discussion and willing to complete the worksheet challenging them to develop a personal SMART goal. Client chose the goal of finding a more enjoyable career by August 27. Client stated this will benefit them by decreasing stress and improving her overall sense of enjoyment. Client identified barriers which included unrealistic expectations and fear he is not qualified. Identified several strategies for addressing barriers, such as reminding himself it?s okay if things take longer than expected and challenge himself to be flexible with what he is looking/applying for. Client willing to begin working on this goal. Benefited from group by developing a short-term SMART goal related to mental health. Will continue IOP tx to increase healthy coping, improve daily functioning, and prevent decompensation. Narrative Note: []
--- NOTE | 2022-07-18 10:10 | BH.SGPN.GN ---
Behaviors/Verbalizations/Mental Status: []Pt alert and oriented, casually dressed and groomed. Eye contact good. Motor activity appropriate. Speech within normal limits. Affect congruent, mood anxious and euthymic. Thoughts linear, logical, no signs of hallucinations or delusions. Client Response/Progress/Benefit: []Pt was an active participant in group discussion and activity. Attentive during psychoeducation. Along with peers, pt was able to identify barriers to taking action. Identified several symptoms and stressors that he feels are holding him back from progress such as negative thoughts, PTSD, and depression. Stated these things have kept pt from making healthy changes, reinforced negative core beliefs about himself, and kept him ?stuck?. Pt shared that he wants to begin addressing the impact negative thoughts has had on his ability to take action. Benefited from increased self-awareness of obstacles. Will continue IOP tx to improve mood management, promote consistent skill application, and further reduce anxiety. Narrative Note: []
--- NOTE | 2022-07-18 11:05 | BH.SGPN.GN ---
Behaviors/Verbalizations/Mental Status: []Pt alert and oriented, neatly dressed and groomed. Eye contact good. Motor activity appropriate. Speech within normal limits. Affect congruent, mood euthymic. Thoughts linear, logical, no signs of hallucinations or delusions. Client Response/Progress/Benefit: []Pt responded well to session, taking notes and participating in worksheet discussion. Pt connected with the zones of action/change and that making sustainable change comes from stepping out of one?s comfort zone into the learning zone. Pt set a goal to gain control over his depression. Pt reported plans to challenge himself to look into going back to finish his Bachelor's Degree. Pt identified using supports and skills like talking with his family, doing research, and looking into his GI bill to help with this goal. Appeared to benefit from identifying a small goal to benefit mental health. Will continue IOP tx to promote mood stability, increase self-confidence, and further reduce ruminations. Narrative Note: []
--- NOTE | 2022-07-18 11:09 | BH.MDN_ITS ---
Multi-Disciplinary Note - Note 45-min Individual Time Started:: 09:00 Date: 07/18/22 Purpose of session/treatment goals addressed:: Reviewed pt's current symptoms and progress in [facility]. Addressed treatment plan goal 2; objectives 1 and 2. Eye Contact:: Good Motor Activity:: Appropriate Appearance:: Casual Speech:: Appropriate Mood:: Anxious Affect:: Congruent Thoughts:: Linear, Logical, No evidence of hallucinations/delusions noted Staff Interventions:: CBT techniques, discharge planning Client Response:: Pt continues to significantly ruminate on his job. Fear of returning to work is his most significant stressor and primary contributor to his continued panic attacks, poor sleep, depression, and overall functioning. He is learning new skills which have decreased the severity, intensity, and duration of panic attacks from 15-18 per day to 3 per day, however with his line of work that is still concerning to him. Medication compliant. Shared increased nightmares in the past week revolving around his job as well as previous secondary trauma experiences. CBT and other healthy coping skills learned in [facility] have helped with stressors and thoughts outside of work which has led to decreased isolation, improved communication, and decreased depressive symptoms, however these skills have not been as effective with his fear of returning to work. Ruminates extensively on fears of work which are impacting his ability to fall asleep and stay asleep. 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 Along with the stressors of the job he also works in a toxic environment and does not believe he has adequate support from his peers and supervisors to complete his job effectively. Financially he is reliant on his job and is reluctant to quit. Great deal of uncertainty regarding his functioning, his anxiety, his career, and his future. Used the session to develop healthy strategies to decrease ruminations and improve sleep. Agreeable to try basic distraction techniques while attempting to sleep (listening to meditation, podcast, etc.). Pt has also reported desire to return to exercising so we set a goal to work out twice this week in hopes that exercise will help increase his energy and motivation during the day and also make him more tired at night leading to prolonged sleep. Pt has been waking up at 4am with anxiety. Risks/Concerns:: no risks or concerns noted. Progress Toward Goals/Plan:: Overall progress noted since admission, however pt's panic attacks, anxiety, and stress of returning to work continue to impact him significantly. Panic attacks have reduced however he continues to report 3 a day. IOP treatment team does not believes that he is capable of returning to work at this point. He has been in IOP for close to 6 weeks and while he is responding he is not able to return to work on scheduled [facility] return date of 07/31/22. Attempts to communicate with his outpatient psychologist Dr. Salinas (who originally completed [facility] paperwork) for the past several weeks have been unsuccessful. Plan is to continue in IOP to prevent decompensation, increase healthy coping, and increase functioning to return to work. It would seem more realistic that his IOP treatment will end before he is able to return to work so we will continue to attempt to communicate with his outpatient team to transition him. Time Stopped:: 10:00
== END 2022-07-27 23:59 ==
LOC: BHIOP 08:23
PROVIDERS: Referring Provider Psychiatry & Neurology Psychiatry; Visit Provider Psychiatry & Neurology Psychiatry
DX: F33.2 Major depressive disorder, recurrent severe without psychotic features (principal); F60.3 Borderline personality disorder; F41.0 Panic disorder [episodic paroxysmal anxiety]
CPT/HCPCS: S9480; 90834; 90837; 90853

== ENCOUNTER 2022-07-28 07:37 | Outpatient (RCR) | payer OTHER, SELFPAY ==
[2022-07-28 00:38] VITALS: BP 125/85; PULSE 61
--- NOTE | 2022-07-28 09:05 | BH.SGPN.GN ---
Behaviors/Verbalizations/Mental Status: [] Eye contact is good. Motor activity is appropriate. Appearance is casual. Speech is Appropriate. Mood is anxious. Affect is congruent. Thoughts are linear and logical. No evidence of psychosis. Reviewed daily check in sheet and no reports of suicidal ideations or intent. Client Response/Progress/Benefit: [] Pt participated at times during the group discussions. Attentive. Pt had been away from [facility] due to a family event. Reports that he feels that his anxiety is stabilizing and he is feeling more optimistic and hopeful about the future. He reports that he did have several panic attacks however when these occur he is able to implement skills and thought reframing which help to decrease intensity and duration. Improved confidence. He has also returned to exercising, which was a goal he set last week. Benefited from group support, encouragement, and feedback. Will continue in [facility] to prevent decompensation, increase healthy coping, and transition back to work. Narrative Note: []
--- NOTE | 2022-07-28 14:28 | BH.MDN ---
Multi-Disciplinary Note - Note 30-min Individual Time Started:: 11:15 Date: 07/28/22 Eye Contact:: Good Motor Activity:: Appropriate Appearance:: Casual Speech:: Appropriate Mood:: Anxious Affect:: Congruent Thoughts:: Linear, Logical, No evidence of hallucinations/delusions noted Staff Interventions:: discharge planning, treatment planning Client Response:: Due to family obligations pt has not attended IOP for over a week. Used the session to review current symptoms, progress, and discharge plan. Pt shared I'm doing better. Reports decreased panic attacks stating only a handful. Increased confidence and decreased hopelessness and isolation. More engaged with family. Less anxiety about returning to work stating I think I'm getting closer to it. Pt is approaching 8 weeks in IOP so majority of session was focused on aftercare planning for eventual discharge. He does not wish to return to his current psychologist feeling as if he didn't care about him. He will remained linked with his procurement services manager from the [place]. Discussion on a trauma-focused [facility] which [facility] geared towards veterans and first responders. We discussed the impact that primary and secondary trauma have had on his anxiety and return to work. Trauma triggers have presented as a significant obstacle to transitioning back to work. With increased confidence in his ability to manage his emotions, decreased panic attacks, and improved functioning the primary obstacle to returning to work is related to managing trauma which is primary goal of the above [facility] program. Risks/Concerns:: no risks or concerns noted. Progress Toward Goals/Plan:: Progress noted. Decreased panic attacks and improved functioning. Pt has began to exercise again last week which was a goal to improve mood and sleep. Utilizing skills more consistently and independently. Pt is going to reach out to gain more information and specifics on the [facility] PTSD program. If he is agreeable to plan would be to discharge to that program. If the [facility] program is not a possibility than we will begin to explore other options. At this point will continue in IOP to prevent decompensation, increase healthy coping, and improve functioning to return to work. Time Stopped:: 11:45
--- NOTE | 2022-08-01 09:00 | BH.SGPN.GN ---
Behaviors/Verbalizations/Mental Status: [] Eye contact is good. Motor activity is appropriate. Appearance is casual. Speech is Appropriate. Mood is depressed. Affect is congruent. Thoughts are linear and logical. No evidence of psychosis. Reviewed daily check in sheet and no reports of suicidal ideations or intent. Client Response/Progress/Benefit: [] Pt was an active participant in group discussion. Attentive. Emotion for today is engaged. Mental health wins include improved sleep and decreased anxiety. Reports that his panic attacks continue to decrease in frequency and intensity. He has noted gradual improvement over the past 2 weeks in his functioning and is back to exercising and being socially active. Increased confidence in his ability to manage his anxiety. I still get the overwhelming thoughts however I can challenge them better. Reports that he is identifying cognitive distortion and unrealistic expectations and reframing, challenging, or accepting the thoughts. 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 Benefited from group support, encouragement, and feedback. Will continue in IOP to maintain gains, prevent decompensation, and increase healthy coping skills. Narrative Note: []
--- NOTE | 2022-08-01 10:10 | BH.SGPN.GN ---
Behaviors/Verbalizations/Mental Status: [] Client alert and oriented, neatly dressed and groomed. Eye contact good. Motor activity appropriate. Speech within normal limits. Affect congruent, mood euthymic. Thoughts linear, logical, no signs of hallucinations or delusions. Client Response/Progress/Benefit: [] Client was an active participant in group discussions. Attentive during psychoeducation on 4 types of conflict styles (Competing, Collaborating, Avoiding, and Accommodating). Worked with group to define conflict and identify how conflict is helpful. With peers identified barriers to addressing or managing conflict which included:not wanting to hurt others, lack of communication skills, and cognitive distortions. Client believes they use the the accommodating style the most. Client shared he experiences feeling unheard a lot . Benefited from group due to increase insight and awareness of benefits to conflict, conflict styles, and obstacles to managing conflict. Will continue in IOP to prevent decompensation, gain healthier core beliefs, and increase overall functioning. Narrative Note: []
--- NOTE | 2022-08-01 11:10 | BH.SGPN.GN ---
Behaviors/Verbalizations/Mental Status: [] Client alert and oriented, neatly dressed and groomed. Eye contact good. Motor activity appropriate. Speech within normal limits. Affect congruent, mood euthymic. Thoughts linear, logical, no signs of hallucinations or delusions. Client Response/Progress/Benefit: [] Client engaged in session AEB contributing to discussion and engaging in activity. Client did well to review current conflict style and its impact on mental health. Attentive during discussion on strategies for more effectively managing conflict in personal life. Client participated in activity and did well to be assertive and collaborating. Client given handout on fair fighting rules. Client indicated that he was going to work on before beginning, asking himself why he is upset. Appeared to benefit from gaining strategies to help client better manage conflict. Will continue IOP tx to increase overall functioning and increase self-care. Narrative Note: []
--- NOTE | 2022-08-02 09:00 | BH.SGPN.GN ---
Behaviors/Verbalizations/Mental Status: []Pt alert and oriented, neatly dressed and groomed. Eye contact good. Motor activity appropriate. Speech within normal limits. Affect constricted, mood anxious. Thoughts linear, logical, no signs of hallucinations or delusions. Reviewed pt?s symptom tracker, no risk for suicidal ideation, plan, or intent as of 08/02/22 Client Response/Progress/Benefit: [] Pt responded well to session, attentive and engaged. Pt reports feeling slightly anxious but engaged this morning. Pt shared he is anxious about his future plans/job, but pt is feeling more hopeful about the future than he was several weeks ago. Pt reported his wins include using opposite action, getting back into exercising, and preventing a panic attack. Pt appeared to benefit from connecting with peers and reflecting on his progress. Pt will continue IOP tx to promote mood stability, further increase distress tolerance skills, and increase self-confidence. Narrative Note: []
--- NOTE | 2022-08-02 10:10 | BH.SGPN.GN ---
Behaviors/Verbalizations/Mental Status: []Pt alert and oriented, casually dressed and groomed. Eye contact good. Motor activity appropriate. Speech within normal limits. Affect congruent, mood euthymic. Thoughts linear, logical, no signs of hallucinations or delusions. Client Response/Progress/Benefit: []Pt receptive to session AEB contributing to discussion, as well listening attentively to others, and taking notes. Worked with group to brainstorm the positive and negative aspects of stress on physical and mental health. Group did well to identify the benefits of stress as well as the impact of distress on performance, relationships, and mental health. 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 Pt seemed to benefit from increased awareness of current stressors and impact stress has on mental health. Recommended to continue IOP tx to continue use of healthy coping skills, challenge distortions, and prevent decompensation.
--- NOTE | 2022-08-02 11:10 | BH.SGPN.GN ---
Behaviors/Verbalizations/Mental Status: []Eye contact is good. Motor activity is appropriate. Appearance is casual. Speech is Appropriate. Mood is anxious and euthymic. Affect is congruent. Thoughts are linear and logical. No evidence of psychosis. Client Response/Progress/Benefit: []Pt was an active participant in group discussions and experiential activity. Attentive during psychoeducation on the 4 A's (Avoid, adapt, alter, accept) of coping with stress as well as strategies to identify stressors in which one has no control, little control, or a great deal of control over. Shared that he would benefit most from working on adapting his expectations in regards to coping with stress of finding a new career path. Was able to identify the connection between the experimental activity and utilization of stress management skills. Benefited from increased awareness of stress management strategies. Will continue in IOP to maintain stability, prevent decompensation, and continue to improve consistent skill application. Narrative Note: []
--- NOTE | 2022-08-08 09:05 | BH.SGPN.GN ---
Behaviors/Verbalizations/Mental Status: [] Eye contact is good. Motor activity is appropriate. Appearance is casual. Speech is Appropriate. Mood is euthymic. Affect is full. Thoughts are linear and logical. No evidence of psychosis. Client Response/Progress/Benefit: [] Pt was an active participant in group discussions. Attentive. Emotion for today is ? anxious?. Mental health win was he has been consistently exercising. ? I?m getting back in shape?. Shared that he stopped exercising due to his depression and anxiety for several months. Shared that his anxiety is ?getting back to baseline?. More hopeful about the future and increased confidence in his ability to manage his emotions. Discussed having anxiety symptoms over the weekend and utilize coping strategies early which prevented a panic attack. Progress noted as he reports improved functioning and independent use of coping skills. Benefited from group support, encouragement, and feedback. Will continue in IOP to maintain gains. Narrative Note: []
--- NOTE | 2022-08-08 10:05 | BH.SGPN.GN ---
Behaviors/Verbalizations/Mental Status: []Pt alert and oriented, casually dressed and groomed. Eye contact good. Motor activity appropriate. Speech within normal limits. Affect congruent, mood euthymic and anxious. Thoughts linear, logical, no signs of hallucinations or delusions. Client Response/Progress/Benefit: []Pt was an active participant AEB contribution to discussion, taking notes, and willingness to engage in group activity. Connected with the topic of pitfalls and listened to group discussion on internal and external barriers that prevent from choosing a healthier path to mental wellness. Group worked together to identify examples of personal internal pitfalls and pt identified his as struggling with patience and distorted thinking patters/assuming the worst. Pt benefited from group as Pt learned to better identify and normalize potential barriers to improving mental health symptoms. Pt will continue IOP tx to prevent decompensation, increase mood management skills, and continue to provide emotional support as pt pursues career options. Narrative Note: []
--- NOTE | 2022-08-08 13:29 | BH.MDN_ITS ---
Multi-Disciplinary Note - Note 45-min Individual Time Started:: 11:00 Date: 08/08/22 Purpose of session/treatment goals addressed:: Met with patient to review progress and symptoms. Used the session to review progress on treatment plan and aftercare. Eye Contact:: Good Motor Activity:: Appropriate Speech:: Appropriate Mood:: Euthymic Affect:: Full Thoughts:: Linear, Logical, No evidence of hallucinations/delusions noted Staff Interventions:: discharge planning Client Response:: Reports the frequency, severity, and intensity of panic attacks have decreased from several a day to once every several days. Last mild panic attack was on 08/06/22. Able to identify anxiety when it arose and quickly implemented thought challenging, reframing, distraction, and opposite action (seeks out support rather than isolate with ruminations) to mitigate distress of panic and negative thoughts. Pt reports improved functioning as he is consistently exercising, attending social activities, and utilizing skills which is significant improvement since admission. Was able to identify common cognitive distortions as well as healthy strategies to reframe or challenge these distortion and negative automatic thoughts. Also increased confidence in the effectiveness of calming strategies such as mindfulness, breathing, etc. Risks/Concerns:: no concerns noted. Progress Toward Goals/Plan:: Progress noted in IOP. Currently patient has met all treatment plan goals and objectives. Therapist and patient have had several conversations of the past weeks regarding aftercare plan. Pt does not wish to return to his previous psychologist however will remain with his electroplating laborer (Rema Dominguez). We discussed [facility] PTSD program (short-term) which we believed would be beneficial to help with primary and secondary trauma and its impact on his anxiety and functioning. He has reached out and is awaiting response. He wants to obtain counseling through [facility] which is a type of service that links members with local therapists and pays for the first 10 sessions. He agreed to call them today and have aftercare set by 08/10/22. He is currently on leave from work till 08/30/22. He does not wish to return, however states that he feels that he will be ready mentally ... I just don't like the type of work anymore. At this point he is set to return to work for 1 day and then he leaves for a previously scheduled family vacation for several weeks. Plan is for him to discharge from [facility] this week as he has reached maximum benefit. Program psychiatrist to meet with him on 08/10/22 to further evaluate. Time Stopped:: 11:45
--- NOTE | 2022-08-10 09:00 | BH.SGPN.GN ---
Behaviors/Verbalizations/Mental Status: [] Eye contact is good. Motor activity is appropriate. Appearance is casual. Speech is Appropriate. Mood is euthymic. Affect is full. Thoughts are linear and logical. No evidence of psychosis. Reviewed daily check in sheet and no reports of suicidal ideations or intent. Client Response/Progress/Benefit: [] Pt was an active participant in group discussion. Attentive. Daily symptom tracker notes 3/5 for anxiety and 2/5 for depression. Shared that today is his last day in [facility]. States that he is feeling hopeful and anxious. Elaborated that decisions have to be made on his future. 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 He shared some of his options. He is back to working out everyday and is finding significant benefit to his sleep and mental health. Along with exercise he is eating healthier and living more in the moment. Discussed his progress throughout the program which has helped him find skills to help with his anxiety. Shared that prior to the program he was suicidal and felt very embarrassed to seek help, however has learned that being vulnerable is beneficial and not a sign of weakness. Benefited from support and praise. Plan is to discharge him from [facility] today Narrative Note: []
--- NOTE | 2022-08-10 10:18 | BH.SGPN.GN ---
Behaviors/Verbalizations/Mental Status: []Eye contact is good. Motor activity is appropriate. Appearance is casual. Speech is Appropriate. Mood is euthymic. Affect is congruent. Thoughts are linear and logical. No evidence of psychosis. Client Response/Progress/Benefit: []Pt was an a mostly passive but attentive participant in group discussions. Attentive during psychoeducation. Engaged and provided feedback along with peers on defining anxiety. Group worked together to identify the benefits of anxiety which included; motivates us, helps us prepare, helps us perform, helps us identify danger, and can keep us safe. Participated with prompting during interactive discussion on how anxiety impacts one physically (increased heart rate, sweaty hands, etc), cognitively (poor concentration, fogginess, catastrophizing, etc), and behaviorally (avoidance, anger, safety behaviors, etc). Shared commonly experiencing physical anxiety symptoms of sweating, muscle tension, difficulties breathing, and clenched jaw. Benefited from increase insight into anxiety's benefits and detriments. Will d/c from tx today and continue with individual outpatient counseling to maintain gains. Narrative Note: []
--- NOTE | 2022-08-10 11:15 | BH.SGPN.GN ---
Behaviors/Verbalizations/Mental Status: []Pt alert and oriented, casually dressed and groomed. Eye contact good. Motor activity appropriate. Speech within normal limits. Affect congruent, mood euthymic. Thoughts linear, logical, no signs of hallucinations or delusions. Client Response/Progress/Benefit: []Pt was an active participant in group discussion AEB providing contributions throughout group and listening attentively to others. Attentive during psychoeducation on mindfulness and ways to utilize mindfulness techniques to improve anxiety management. The group practiced deep breathing and the 5-senses during session. Engaged and attentive during group brainstorm of healthy anxiety reduction skills including thought challenging and behavioral changes. Appeared to benefit from practicing in the moment coping skills and increasing repertoire of anxiety management skills. Pt selected wanting to work on making goals and keeping an accomplishment log to combat anxious thoughts. Pt will discharge from IOP tx today as pt has made significant progress and no longer meets criteria for IOP level of care. ? Narrative Note: []
--- NOTE | 2022-08-10 12:34 | PCM.BH.PN_ITS ---
Progress Note Progress Note: History of Present Illness/Interim History: The patient is a 51-year-old male with a history of PTSD, panic disorder and depression who is seen in follow-up at the [facility] behavioral health IOP program. I last saw the patient about 1 month ago. The patient states that his symptoms have improved and he discontinued his Remeron and Seroquel on his own about 10 days ago as he felt he was gaining weight from them. He feels his symptoms have greatly improved and he is mildly depressed only now. He is not isolating himself and is having panic attacks less than 3 times a week now. He is able to abort many of the panic attacks with the skills he has learned in the IOP. He is exercising regularly also which has helped him. He is sleeping better at 7 hours a night lately even without the Remeron and Seroquel. He is hopeful for the future and has applied for other jobs that he feels he could tolerate. 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 He is using the Ativan only once every 2 weeks now. He denies passive thoughts of , suicidal ideation, homicidal ideation, hallucinations or delusions. Current Psychiatric Medications: [] Celexa 40 mg p.o. daily; Remeron 30 mg nightly and Seroquel 50 mg p.o. nightly discontinued 10 days ago by the patient due to weight gain. Ativan 1 mg which he is only taking once every 2 weeks now. Mental Status Examination: [] Patient is a 51-year-old male who appears normal for stated age and is ambulatory with a normal gait. He has no psychomotor agitation or retardation. He is casually dressed and groomed and is cooperative during the interview. Speech is normal rate and rhythm and fluent with no pressure. Eye contact is good. Mood is approaching euthymia. Affect is full and normal. Thought process is goal-directed and organized. Thought content: The patient is hopeful for the future and is investigating possible work opportunities. There is no evidence of passive thoughts of , suicidal ideation, homicidal ideation, plan for suicide, hallucinations or delusions. Reality testing is intact. Judgment is intact. Impulsivity is low. Insight is limited but improving. Diagnoses: [] 1. Major depressive disorder, recurrent, severe without psychosis (resolving) 2. PTSD 3. Panic disorder 4. Work and primary support issues Plan: [] The patient may be discharged from the program this week as his situation has improved. He felt safe during the interview and if it anytime he does not feel safe he will let us know or go to the emergency room. The patient will continue to follow-up with his outpatient providers and I will and will continue on his Celexa medication regimen.
--- NOTE | 2022-08-10 14:50 | BH.DS_ITS ---
Discharge Summary - Demographics Date of Admission:: 06/06/22 Discharge Date: 08/10/22 Presenting Problems at Admission:: Pt is a 51 year old male with a dx of of MDD, PTSD, and Panic Disorder. No hx of previous psychiatric admissions. Referred to [facility] level of care by his outpatient psychologist due to anxiety attacks impacting functioning at home and work. Pt was placed on FMLA from work and has shown limited benefit from traditional outpatient. Worsening anxiety and stress for the past two years which pt reports is mainly due to work environment. Reports significant bullying and unfair treatment in his current job. Constant anxiety and numerous panic attacks daily. Anxiety attacks can often be triggered by small things such as not being able to find a tool. Endorses isolation, no pleasure in activities, decreased sleep, poor appetite, low energy, no m otivation, hopelessness, worthlessness, and poor focus/concentration/memory. Struggles with daily responsibilities and tasks at home. Avoids social outlets (religious, family events, etc.). 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 Denies HI or psychosis. Denies active suicidal ideations, plan, or intent. No hx of attempts. Family hx of depression (father). Currently lives with , adopted son, and 4 kids (4,5,9). Discharge Diagnoses:: 1. Major depressive disorder, recurrent, severe without psychosis (resolving). 2. PTSD. 3. Panic disorder Reason for Discharge:: No longer meets criteria for [facility] level of care. Completed treatment plan goals/objectives. - Treatment Progress During Treatment & Response: Progress noted. Struggled with consistent attendance however when present was attentive and engaged. Reports the frequency, severity, and intensity of panic attacks have decreased from several a day to once every several days. Pt reports improved functioning as he is consistently exercising, attending social activities, and utilizing skills which is significant improvement since admission. Was able to identify common cognitive distortions as well as healthy strategies to reframe or challenge these distortion and negative automatic thoughts. Also increased confidence in the effectiveness of calming strategies such as mindfulness, breathing, etc. Outcomes indicate an overall 54% decrease in symptoms. Scores on the DSM-5 cross-cutting scales showed a 75% decrease in the depressive domain, a 58% reduction in the anxiety domain, a 57% reduction in repetitive thoughts/behaviors, and a 100% decrease is dissociative symptoms. Pt reports improved memory and sleep. No passive thoughts of in over 2 weeks. Issues Still to be Addressed:: Pt would benefit from beginning to address primary and secondary trauma. Also recommended continued counseling for anxiety, panic, communication skills, CBT techniques, and depression. Discharge Recommendations/Instructions:: Pt was scheduled to return to work from [employer] on 08/30/22, however he spoke with supervisor road administrator today who recommended that he take that day off as its already fully covered and its a holiday. He is set to report to his [employer] duties on 08/31/22 for several weeks and then has a scheduled family vacation when he returns from his duties. There pt will not be scheduled to return to work till closer to September. He has agreed to remain in counseling and meet with his analytical lab analyst after discharge from [facility]. Has appointment with Rema Valles (analytical lab analyst) in a couple weeks. Set up counseling appointment with ASHELY Davis at [facility] next week. He has also met with Dr. Aidan Wilcox (psychologist) at the [facility] and is in talks to participate in a PTSD program which involved a 'Stellate Ganglion Block; injection. [facility] and is awaiting a call back. Discharge Handout: Complete Discharge Handout with client on aftercare options and continuity of care.
== END 2022-08-10 12:44 | disposition home or self-care (01) ==
LOC: BHIOP 07:37
PROVIDERS: Referring Provider Psychiatry & Neurology Psychiatry; Visit Provider Psychiatry & Neurology Psychiatry
DX: F33.2 Major depressive disorder, recurrent severe without psychotic features (principal); F43.10 Post-traumatic stress disorder, unspecified; F41.0 Panic disorder [episodic paroxysmal anxiety]
CPT/HCPCS: S9480; 90832; 90834; 90853